=== PATIENT | female | born 1990 | race Caucasian/White ===

== ENCOUNTER 2016-04-08 09:18 | Emergency (ER) | payer MEDICAID ==
[2016-04-08] MEDS ORDERED: METOCLOPRAMIDE 10 MG/2 ML VIAL ONE (10:25)
[2016-04-08] MEDS ORDERED: KETOROLAC 30 MG/ML VIAL ONE (10:26)
[2016-04-08] MEDS ORDERED: DIPHENHYDRAMINE 50 MG/ML VIAL ONE (10:26)
[2016-04-08] MEDS ORDERED: SODIUM CHLORIDE 0.9% 1,000 ML ONE (10:26)
== END 2016-04-08 10:54 | disposition home or self-care (01) ==
LOC: ER 09:18
CPT/HCPCS: 96374; 96375